=== PATIENT | male | born 2000 | race African-American/Black ===

== ENCOUNTER 2019-01-23 08:56 | Emergency (ER) | payer MEDICAID, OTHER ==
[~2019-01-23] VITALS: Ht 177.8 cm; Wt 68.0 kg
[2019-01-23] MEDS ORDERED: KETOROLAC 30MG/ML VIAL IV STA (09:35)
[2019-01-23] MEDS ORDERED: DEXAMETHASONE 10 MG/ML VIAL IV ONE (09:45)
[2019-01-23] MEDS ORDERED: CEFTRIAXONE 1 G PREMIX 50 ML IV ONE (09:45)
[2019-01-23] MEDS ORDERED: ONDANSETRON HCL 4MG/2ML INJ IV NR (09:51)
[2019-01-23 09:55] LABS: HEMATOCRIT. 40.3 % (42.0-52.0); HEMOGLOBIN. 13.5 g/dL (14.0-18.0); MEAN CORPUSCULAR HEMOGLOBIN 28.8 pg (28.0-32.0); MEAN CORPUSCULAR VOLUME 86.2 fL (80.0-94.0); MEAN PLATELET VOLUME 8.5 fl (7.4-10.4); PLATELET 313 x1000/uL (130-400); RED BLOOD CELL COUNT 4.67 mill/uL (4.7-6.1); RED CELL DISTRIBUTION WIDTH 13.5 % (11.6-14.6)
[2019-01-23 10:01] LABS: CHLORIDE 100 mEq/L (98-107)
[2019-01-23 10:35] LABS: MONOTEST NEGATIVE (NEGATIVE)
[2019-01-23] MEDS ORDERED: CLINDAMYCIN 600 MG in DEXTROSE 5% WATER 50 ML IV ONE (10:45)
[2019-01-23 11:18] LABS: PLATELET ESTIMATE NORMAL
[2019-01-23] MEDS ORDERED: IOHEXOL-300 100 ML BOTTLE ONE (11:44)
[2019-01-23] MEDS ORDERED: CLINDAMYCIN 600MG PREMIX 50 ML IV SCH (11:45)
[2019-01-23 13:54] VITALS: BP 124/62
== END 2019-01-23 13:52 | disposition home or self-care (01) ==
LOC: ER 08:56
DX: J36 Peritonsillar abscess (principal); F12.10 Cannabis abuse, uncomplicated
CPT/HCPCS: 36415; 70491; 80048; 85025; 86308; 87040; 87070; 87430; 96365; 96366; 96367; 96375; 99284; J0696; J1100; J1885; J2405; J3490; Q9967; Z7610; J7060

== ENCOUNTER 2019-03-20 17:20 | Emergency (ER) | payer MEDICAID ==
[~2019-03-20] VITALS: Ht 167.6 cm; Wt 64.0 kg
[2019-03-20] MEDS ORDERED: DEXAMETHASONE 4MG/ML 1ML VIAL IM ONE (20:30)
[2019-03-20] MEDS ORDERED: IBUPROFEN 600MG TABLET PO ONE (20:30)
[2019-03-20] MEDS ORDERED: PEN G BENZ/PEN G PROCAINE CR 1.2 MMU/2 ML IM ONE (20:30)
[2019-03-20 21:34] VITALS: BP 128/66
== END 2019-03-20 21:34 | disposition home or self-care (01) ==
LOC: ER 17:20
DX: J03.80 Acute tonsillitis due to other specified organisms (principal); B96.89 Other specified bacterial agents as the cause of diseases classified elsewhere
CPT/HCPCS: 96372; 99283; J0558; J1100